=== PATIENT | female | born 1995 ===

== ENCOUNTER → 2023-11-17 12:18 | Outpatient (BNVA) | payer SELFPAY | PROVIDERS: Visit Provider Internal Medicine Pulmonary Disease | DX: R06.02 Shortness of breath (principal); J30.2 Other seasonal allergic rhinitis | CPT/HCPCS: 36415; 80053; 82785; 85025; 86003 ==

== ENCOUNTER 2023-11-18 11:39 | Outpatient (CLI) | payer SELFPAY ==
[2023-11-18 12:09] VITALS: PULSE 109; RESP 18; O2SAT 98
[2023-11-18] MEDS: albuterol 2.5 mg/3 mL Neb INHALATION (12:09)
[2023-11-18 12:13] VITALS: PULSE 114
== END 2023-11-18 11:40 | disposition home or self-care (01) ==
LOC: RT 11:39
PROVIDERS: Visit Provider Internal Medicine Pulmonary Disease
DX: J45.909 Unspecified asthma, uncomplicated (principal); R94.2 Abnormal results of pulmonary function studies
CPT/HCPCS: 94060; 94726; 94729; J7613